=== PATIENT | female | born 1995 | race Caucasian/White ===

== ENCOUNTER 2016-12-26 10:31 | Emergency (ER) | payer OTHER ==
[2016-12-26] MEDS ORDERED: METOCLOPRAMIDE HCL ORAL SOLN 10 MG/10 ML UDCUP PO ONE (11:00)
[2016-12-26] MEDS ORDERED: LIDOCAINE 2% VISCOUS SOLN 20 ML UDCUP PO ONE (11:00)
[2016-12-26] MEDS ORDERED: MAG HYDROX/AL HYDROX/SIMETH SUSP 30 ML UDCUP PO ONE (11:00)
--- NOTE | 2016-12-26 11:03 | ER Document Report ---
ED Medical Screen (RME) - General Chief Complaint: Abdominal Pain Stated Complaint: ABD/BACK PAIN Time Seen by Provider: 12/26/16 10:53 Mode of Arrival: Ambulatory Information source: Patient, Relative, Outside Facility Records Notes: 21-year-old female history of gastric ulcer in the past presents with complaints of epigastric abdominal pain that radiates to her back and up her chest. Patient was seen at urgent care and sent in for evaluation H pylori urine urinalysis were negative I have greeted and performed a rapid initial assessment of this patient. A comprehensive ED assessment and evaluation of the patient, analysis of test results and completion of the medical decision making process will be conducted by additional ED providers. PHYSICAL EXAMINATION: GENERAL: Well-appearing, well-nourished and in mild distress from pain HEAD: Atraumatic, normocephalic. EYES: Pupils equal round extraocular movements intact, conjunctiva are normal. ENT: Nares patent NECK: Normal range of motion LUNGS: No respiratory distress Musculoskeletal: Normal range of motion NEUROLOGICAL: Normal speech, normal gait. PSYCH: Normal mood, normal affect. SKIN: Warm, Dry, normal turgor, no rashes or lesions noted. TRAVEL OUTSIDE OF THE [place] IN LAST 30 DAYS: No - Related Data Allergies/Adverse Reactions: No Known Allergies Allergy (Unverified 12/26/16 10:37) Home Medications: Current Home Medications No Home Medications 12/26/16 [History] Past Medical History - Social History Chew tobacco use (# tins/day): No Frequency of alcohol use: None Drug Abuse: None Renal/ Medical History: Denies: Hx Peritoneal Dialysis Surgical Hx: Negative - Immunizations Immunizations up to date: Yes Hx Diphtheria, Pertussis, Tetanus Vaccination: Yes Physical Exam - Vital signs Vitals: Temp Pulse BP Pulse Ox 99.0 F 86 129/91 H 100 12/26/16 10:39 12/26/16 10:39 12/26/16 10:39 12/26/16 10:39 Course - Vital Signs Vital signs: Temp Pulse Resp BP Pulse Ox 99.0 F 86 129/91 H 100 12/26/16 10:39 12/26/16 10:39 12/26/16 10:39 12/26/16 10:39
[2016-12-26 11:27] LABS: ABSOLUTE LYMPHOCYTES (AUTO) 1.6 10^3/uL (0.5-4.7); ABSOLUTE MONOCYTES (AUTO) 0.6 10^3/uL (0.1-1.4); ABSOLUTE NEUT (AUTO) 6.5 10^3/uL (1.7-8.2); BASOPHILS % (AUTO) 0.3 % (0-2); EOSINOPHILS % (AUTO) 0.4 % (0-6); HEMATOCRIT 41.1 % (36.0-47.0); HEMOGLOBIN 14.3 g/dL (12.0-15.5); HGB HCT DIFFERENCE 1.8; LYMPHOCYTES % (AUTO) 18.7 % (13-45); MEAN CORPUSCULAR HEMOGLOBIN 33.2 pg (27.0-33.4); MEAN CORPUSCULAR HGB CONC 34.7 g/dL (32.0-36.0); MEAN CORPUSCULAR VOLUME 95 fl (80-97); MONOCYTES % (AUTO) 6.6 % (3-13); RED BLOOD COUNT 4.31 10^6/uL (3.72-5.28); RED CELL DISTRIBUTION WIDTH 12.4 % (11.5-14.0); WHITE BLOOD COUNT 8.7 10^3/uL (4.0-10.5)
[2016-12-26 11:34] LABS: APPEARANCE,URINE CLEAR; BILIRUBIN,URINE NEGATIVE (NEGATIVE); GLUCOSE, URINE NEGATIVE (NEGATIVE); KETONES,URINE NEGATIVE (NEGATIVE); LEUKOCYTE ESTERASE,URINE NEGATIVE (NEGATIVE); NITRITE,URINE NEGATIVE (NEGATIVE); PROTEIN,URINE NEGATIVE (NEGATIVE); URINE SPECIFIC GRAVITY 1.005; UROBILINOGEN,URINE NEGATIVE mg/dL (<2.0)
[2016-12-26 11:48] LABS: ALANINE AMINOTRANSFERASE 28 U/L (9-52); ALBUMIN 4.8 g/dL (3.5-5.0); ALKALINE PHOSPHATASE 56 U/L (38-126); ANION GAP 13 (5-19); ASPARTATE AMINO TRANSFERASE 17 U/L (14-36); BILIRUBIN,DIRECT 0.3 mg/dL (0.0-0.4); BILIRUBIN,TOTAL 0.6 mg/dL (0.2-1.3); BLOOD UREA NITROGEN 10 mg/dL (7-20); CALCIUM 9.6 mg/dL (8.4-10.2); CARBON DIOXIDE 23 mmol/L (22-30); CHLORIDE 104 mmol/L (98-107); CREATININE RESULT 0.78 mg/dL (0.52-1.25); GLUCOSE 91 mg/dL (75-110); LIPASE 68.1 U/L (23-300); POTASSIUM 4.3 mmol/L (3.6-5.0); SODIUM 139.7 mmol/L (137-145); TOTAL PROTEIN 7.6 g/dL (6.3-8.2)
[2016-12-26] MEDS ORDERED: MORPHINE SULFATE 10 MG/ML INJ IM ONE (12:15)
[2016-12-26] MEDS ORDERED: MORPHINE SULFATE 10 MG/ML INJ IV ONE (12:17)
--- NOTE | 2016-12-26 12:17 | ER Document Report ---
ED General - General Chief Complaint: Abdominal Pain Stated Complaint: ABD/BACK PAIN Time Seen by Provider: 12/26/16 10:53 Mode of Arrival: Ambulatory Information source: Patient, Dr. Office Notes: 21-year-old female history of gastric ulcer presents with complaint of epigastric abdominal pain rating to her back. Patient notes symptoms started earlier today admits to burning sensation. Denies any fevers or chills denies any nausea vomiting admits to bad taste in her mouth as well as the pain radiating up her chest through her esophagus. TRAVEL OUTSIDE OF THE [place] IN LAST 30 DAYS: No - HPI Onset: Just prior to arrival Onset/Duration: Sudden Quality of pain: Burning Severity: Moderate Pain Level: 4 Associated symptoms: Other Exacerbated by: Denies Relieved by: Denies Similar symptoms previously: Yes Recently seen / treated by doctor: Yes - Related Data Allergies/Adverse Reactions: No Known Allergies Allergy (Unverified 12/26/16 10:37) Past Medical History - General Information source: Patient, Relative, Outside Facility Records - Social History Smoking Status: Never Smoker Cigarette use (# per day): No Chew tobacco use (# tins/day): No Smoking Education Provided: No Frequency of alcohol use: None Drug Abuse: None Family History: Reviewed & Not Pertinent Patient has suicidal ideation: No Patient has homicidal ideation: No Renal/ Medical History: Denies: Hx Peritoneal Dialysis Surgical Hx: Negative - Immunizations Immunizations up to date: Yes Hx Diphtheria, Pertussis, Tetanus Vaccination: Yes Review of Systems - Review of Systems Notes: REVIEW OF SYSTEMS: CONSTITUTIONAL : Denies fever, chills, or sweats. Denies recent illness. EENT: Denies eye, ear, throat, or mouth pain or symptoms. Denies nasal or sinus congestion or discharge. Denies throat, tongue, or mouth swelling or difficulty swallowing. CARDIOVASCULAR: Denies chest pain. Denies palpitations or racing or irregular heart beat. Denies ankle edema. RESPIRATORY: Denies cough, cold, or chest congestion. Denies shortness of breath, difficulty breathing, or wheezing. GASTROINTESTINAL: epigastric abd GENITOURINARY: Denies difficulty urinating, painful urination, burning, frequency, blood in urine, or discharge. FEMALE GENITOURINARY: Denies vaginal bleeding, heavy or abnormal periods, irregular periods. Denies vaginal discharge or odor. MUSCULOSKELETAL: Denies back or neck pain or stiffness. Denies joint pain or swelling. SKIN: Denies rash, lesions or sores. HEMATOLOGIC : Denies easy bruising or bleeding. LYMPHATIC: Denies swollen, enlarged glands. NEUROLOGICAL: Denies confusion or altered mental status. Denies passing out or loss of consciousness. Denies dizziness or lightheadedness. Denies headache. Denies weakness or paralysis or loss of use of either side. Denies problems with gait or speech. Denies sensory loss, numbness, or tingling. Denies seizures. PSYCHIATRIC: Denies anxiety or stress. Denies depression, suicidal ideation, or homicidal ideation. ALL OTHER SYSTEMS REVIEWED AND NEGATIVE. PHYSICAL EXAMINATION: GENERAL: Well-appearing, well-nourished and in mild distress HEAD: Atraumatic, normocephalic. EYES: Pupils equal round and reactive to light, extraocular movements intact, conjunctiva are normal. ENT: Nares patent, oropharynx clear without exudates. Moist mucous membranes. NECK: Normal range of motion, supple without lymphadenopathy LUNGS: Breath sounds clear to auscultation bilaterally and equal. No wheezes rales or rhonchi. HEART: Regular rate and rhythm without murmurs ABDOMEN: Soft, tender i nthe epigastric region Female : deferred Musculoskeletal: Normal range of motion, no pitting or edema. No cyanosis. NEUROLOGICAL: Cranial nerves grossly intact. Normal speech, normal gait. Normal sensory, motor exams PSYCH: Normal mood, normal affect. SKIN: Warm, Dry, normal turgor, no rashes or lesions noted. Dictation was performed using [employer] voice recognition software Physical Exam - Vital signs Vitals: Temp Pulse BP Pulse Ox 99.0 F 86 129/91 H 100 12/26/16 10:39 12/26/16 10:39 12/26/16 10:39 12/26/16 10:39 Course - Re-evaluation Re-evalutation: 12/26/16 15:06 Labwork notes no significant abnormality, CT was negative. I believe symptoms are secondary to ulceration patient will be given GI follow-up and is otherwise stable for discharge After performing a Medical Screening Examination, I estimate there is LOW risk for ACUTE APPENDICITIS, BOWEL OBSTRUCTION, ACUTE CHOLECYSTITIS, PERFORATED DIVERTICULITIS, INCARCERATED HERNIA, PANCREATITIS, PELVIC INFLAMMATORY DISEASE, PERFORATED ULCER, ECTOPIC , or TUBO-OVARIAN ABSCESS, thus I consider the discharge disposition reasonable. Also, there is no evidence or peritonitis , sepsis, or toxicity. I have reevaluated this patient multiple times and no significant life threatening changes are noted. The patient and I have discussed the diagnosis and risks, and we agree with discharging home with close follow-up with the understanding that symptoms and presentations can change. We also discussed returning to the Emergency Department immediately if new or worsening symptoms occur. We have discussed the symptoms which are most concerning (e.g., bloody stool, fever, changing or worsening pain, vomiting) that necessitate immediate return. - Vital Signs Vital signs: Temp Pulse Resp BP Pulse Ox 98.4 F 77 20 123/90 H 100 12/26/16 13:33 12/26/16 13:33 12/26/16 13:33 12/26/16 13:33 12/26/16 13:33 - Laboratory Result Diagrams: 12/26/16 11:05 12/26/16 11:05 Laboratory results interpreted by me: 12/26/16 11:05 Urine Blood SMALL H - Diagnostic Test Radiology reviewed: Image reviewed, Reports reviewed - no acute abnormality Discharge - Discharge Clinical Impression: GERD (gastroesophageal reflux disease) Qualifiers: Esophagitis presence: with esophagitis Qualified Code(s): K21.0 - Gastro- esophageal reflux disease with esophagitis Abdominal pain Qualifiers: Abdominal location: epigastric Qualified Code(s): R10.13 - Epigastric pain Condition: Stable Disposition: HOME, SELF-CARE Instructions: Abdominal Pain ([facility]) Prescriptions: Famotidine [Pepcid 20 mg Tablet] 20 mg PO DAILY #30 tablet Hydrocodone/Acetaminophen [[place] 5-325 mg Tablet] 1 tab PO Q6 #10 tablet Referrals: HUMBLE QUINTANILLA MD [ACTIVE STAFF] - Follow up tomorrow
--- NOTE | 2016-12-26 13:17 | RADIOLOGY REPORT (SQ) ---
EXAM DESCRIPTION: CT ABD/PELVIS WITH IV ONLY COMPLETED DATE/TIME: 12/26/2016 12:37 pm REASON FOR STUDY: epigastric abd pain COMPARISON: None. TECHNIQUE: CT scan of the abdomen and pelvis performed using helical scanning technique with dynamic intravenous contrast injection. No oral contrast. Images reviewed with lung, soft tissue, and bone windows. Reconstructed coronal and sagittal MPR imag es reviewed. Delayed images for evaluation of the urinary system also acquired. All images stored on PACS. All CT scanners at this facility use dose modulation, iterative reconstruction, and/or weight based d osing when appropriate to reduce radiation dose to as low as reasonably achievable (ALARA). [facility]: Dose Right [facility]: CareDose [facility]: Dose Right [facility]: Teradose 4D [facility]: [place] CONTRAST TYPE AND DOSE: contrast/concentration: Isovue 370.00 mg/ml; Total Contrast Delivered: 96.0 ml; Total Saline Delivered: 67.0 ml RENAL FUNCTION: Creatinine 0.78 RADIATION DOSE: Up-to-date CT equipment and radiation dose reduction techniques were employed. CTDIv ol: 9.3 - 12.3 mGy. DLP: 1197 mGy-cm.. LIMITATIONS: No oral contrast FINDINGS: LOWER CHEST: No significant findings. No nodules or infiltrates. LIVER: Normal size. No masses. No dilated ducts. SPLEEN: Normal size. No focal lesions. PANCREAS: No masses. No significant calcifications. No adjacent inflammation or peripancreatic fluid collections. Pancreatic duct not dilated. GALLBLADDER: No identified stones by CT criteria. No inflammatory changes to suggest cholecystitis. ADRENAL GLANDS: No significant masses or asymmetry. RIGHT KIDNEY AND URETER: No solid masses. No significant calcifications. No hydronephrosis or hyd roureter. LEFT KIDNEY AND URETER: No solid masses. No significant calcifications. No hydronephrosis or hydr oureter. AORTA AND VESSELS: No aneurysm. No dissection. Renal arteries, SMA, celiac without stenosis. RETROPERITONEUM: No retroperitoneal adenopathy, hemorrhage or masses. BOWEL AND PERITONEAL CAVITY: No masses or inflammatory changes. No free fluid or peritoneal masses. Moderate stool throughout the colon APPENDIX: Normal. PELVIS: No mass. No free fluid. Normal bladder. ABDOMINAL WALL: No masses. No hernias. BONES: No significant or acute findings. OTHER: No other significant finding. IMPRESSION: NO SIGNIFICANT OR ACUTE FINDING IN THE ABDOMEN OR PELVIS ON CT SCAN WITH IV CONTRAST. TECHNICAL DOCUMENTATION: JOB ID: [id number] Quality ID # [id number]: Final reports with documentation of one or more dose reduction techniques (e.g., Au tomated exposure control, adjustment of the mA and/or kV according to patient size, use of iterative reconstruction technique) 2010 [employer]- All Rights Reserved
[2016-12-26 13:37] VITALS: BP 123/90
== END 2016-12-26 13:37 | disposition home or self-care (01) ==
LOC: ER 10:31
DX: K21.0 Gastro-esophageal reflux disease with esophagitis (principal); R10.13 Epigastric pain; M54.9 Dorsalgia, unspecified
CPT/HCPCS: 99284; 36415; 83690; 85025; 81025; 80053; 81001; 74177; J3490

== ENCOUNTER 2017-01-23 18:11 | Inpatient (IN) | payer OTHER ==
[2017-01-23] MEDS ORDERED: NORMAL SALINE 1000 ML 1,000 ML IV PRN (18:49)
[2017-01-23] MEDS ORDERED: KETOROLAC TROMETHAMINE INJ/PF 30 MG/1 ML SDV IV ONE (18:50)
[2017-01-23 19:33] LABS: ABSOLUTE LYMPHOCYTES (AUTO) 1.7 10^3/uL (0.5-4.7); ABSOLUTE MONOCYTES (AUTO) 0.9 10^3/uL (0.1-1.4); ABSOLUTE NEUT (AUTO) 5.7 10^3/uL (1.7-8.2); BASOPHILS % (AUTO) 0.6 % (0-2); EOSINOPHILS % (AUTO) 0.5 % (0-6); HEMATOCRIT 43.4 % (36.0-47.0); HGB HCT DIFFERENCE 1.6; LYMPHOCYTES % (AUTO) 20.1 % (13-45); MEAN CORPUSCULAR HEMOGLOBIN 33.3 pg (27.0-33.4); MEAN CORPUSCULAR HGB CONC 34.7 g/dL (32.0-36.0); MEAN CORPUSCULAR VOLUME 96 fl (80-97); MONOCYTES % (AUTO) 10.3 % (3-13); RED BLOOD COUNT 4.52 10^6/uL (3.72-5.28); RED CELL DISTRIBUTION WIDTH 12.2 % (11.5-14.0); SEGMENTED NEUTROPHILS % (AUTO) 68.5 % (42-78); WHITE BLOOD COUNT 8.4 10^3/uL (4.0-10.5)
--- NOTE | 2017-01-23 19:34 | ER Document Report ---
ED Medical Screen (RME) - General Chief Complaint: Abdominal Pain Stated Complaint: ABDOMINAL PAIN, BACK PAIN Time Seen by Provider: 01/23/17 18:49 Notes: Patient states she was here 1 month ago for abdominal pain. She states a CT scan was done at that time and was unremarkable. She states she was told that she may have an ulcer. She was then referred to [facility]. She states [facility] did an upper endoscopy and this was negative for ulcer and showed no significant findings. Patient states she has a colonoscopy scheduled at [facility] the end of this month. She states her pain is now so severe she does not believe she can wait for the colonoscopy. TRAVEL OUTSIDE OF THE [place] IN LAST 30 DAYS: No - Related Data Allergies/Adverse Reactions: No Known Allergies Allergy (Verified 01/23/17 18:19) Past Medical History Renal/ Medical History: Denies: Hx Peritoneal Dialysis - Immunizations Immunizations up to date: Yes Hx Diphtheria, Pertussis, Tetanus Vaccination: Yes Physical Exam - Vital signs Vitals: Temp Pulse Resp BP Pulse Ox 98.5 F 95 18 141/85 H 99 01/23/17 18:17 01/23/17 18:17 01/23/17 18:17 01/23/17 18:17 01/23/17 18:17 Course - Vital Signs Vital signs: Temp Pulse Resp BP Pulse Ox 98.5 F 95 18 141/85 H 99 01/23/17 18:17 01/23/17 18:17 01/23/17 18:17 01/23/17 18:17 01/23/17 18:17 - Laboratory Result Diagrams: 01/23/17 18:25 01/23/17 18:25
[2017-01-23 19:46] LABS: APPEARANCE,URINE SLIGHTLY-CLOUDY; BILIRUBIN,URINE SMALL (NEGATIVE); GLUCOSE, URINE NEGATIVE (NEGATIVE); KETONES,URINE NEGATIVE (NEGATIVE); LEUKOCYTE ESTERASE,URINE NEGATIVE (NEGATIVE); NITRITE,URINE NEGATIVE (NEGATIVE); PROTEIN,URINE NEGATIVE (NEGATIVE); URINE SPECIFIC GRAVITY 1.019
--- NOTE | 2017-01-23 19:57 | ER Document Report ---
ED GI/ - General Chief Complaint: Abdominal Pain Stated Complaint: ABDOMINAL PAIN, BACK PAIN Time Seen by Provider: 01/23/17 18:49 Mode of Arrival: Ambulatory Information source: Patient Notes: Patient reports a one-month history of epigastric pain that radiates through to her back. Patient states tonight that the pain worsened and will occasionally radiate to her right shoulder. Patient denies any nausea, vomiting or diarrhea. Patient denies any urinary symptoms. Patient denies any fever. Patient states pain does worsen after eating. TRAVEL OUTSIDE OF THE [place] IN LAST 30 DAYS: No - HPI Patient complains to provider of: Abdominal pain. No: Flank pain, Vomiting Onset: Other - Off and on 1 month, worse over the past 2 days Timing/Duration: Worse Quality of pain: Sharp Pain Level: 4 Location: Epigastric, RUQ Vaginal bleeding (Compared to normal period): None Menstrual period history: denies: Associated symptoms: denies: Diarrhea, Dysuria, Fever, Loss of appetite, Nausea , Urinary hesitancy, Urinary frequency, Urinary retention, Urinary urgency, Vomiting Exacerbated by: Food Relieved by: Denies Similar symptoms previously: Yes Recently seen / treated by doctor: No - Related Data Allergies/Adverse Reactions: No Known Allergies Allergy (Verified 01/23/17 18:19) Past Medical History - General Information source: Patient - Social History Smoking Status: Never Smoker Frequency of alcohol use: None Drug Abuse: None Lives with: Family Family History: Reviewed & Not Pertinent - Medical History Medical History: Negative Renal/ Medical History: Denies: Hx Peritoneal Dialysis Surgical Hx: Negative - Immunizations Immunizations up to date: Yes Hx Diphtheria, Pertussis, Tetanus Vaccination: Yes Review of Systems - Review of Systems Constitutional: No symptoms reported. denies: Fever, Recent illness EENT: No symptoms reported Cardiovascular: No symptoms reported. denies: Chest pain Respiratory: No symptoms reported. denies: Cough, Short of breath Gastrointestinal: Abdominal pain. denies: Diarrhea, Nausea, Vomiting Genitourinary: No symptoms reported. denies: Dysuria, Flank pain Female Genitourinary: No symptoms reported Musculoskeletal: Back pain Skin: No symptoms reported Hematologic/Lymphatic: No symptoms reported Neurological/Psychological: No symptoms reported Physical Exam - Vital signs Vitals: Temp Pulse Resp BP Pulse Ox 98.5 F 95 18 141/85 H 99 01/23/17 18:17 01/23/17 18:17 01/23/17 18:17 01/23/17 18:17 01/23/17 18:17 - General General appearance: Appears well, Alert In distress: None - HEENT Head: Normocephalic, Atraumatic Eyes: Normal Nasal: Normal Mouth/Lips: Normal Mucous membranes: Normal Pharynx: Normal Neck: Normal, Supple. No: Lymphadenopathy - Respiratory Respiratory status: No respiratory distress Chest status: Nontender Breath sounds: Normal. No: Rales, Rhonchi, Stridor, Wheezing Chest palpation: Normal - Cardiovascular Rhythm: Regular Heart sounds: S1 appreciated, S2 appreciated Murmur: No - Abdominal Inspection: Normal Distension: No distension Bowel sounds: Normal Tenderness: Tender - Epigastric, right upper quadrant tenderness, Guarding Organomegaly: No organomegaly - Back Back: Normal, Tender - Tenderness to mid thoracic area. No: CVA tenderness - Extremities General upper extremity: Normal inspection, Normal ROM General lower extremity: Normal inspection, Normal ROM - Neurological Neuro grossly intact: Yes Cognition: Normal [place]mael Coma Scale Eye Opening: Spontaneous [place] Coma Scale Verbal: Oriented [place] Coma Scale Motor: Obeys Commands [place] Coma Scale Total: 15 - Psychological Associated symptoms: Normal affect, Normal mood - Skin Skin Temperature: Warm Skin Moisture: Dry Skin Color: Normal Course - Re-evaluation Re-evalutation: 01/23/17 21:02 Patient with symptoms concerning for cholecystitis, with possibility of choledocholithiasis. Consulted with Dr. Sky who agrees to come and evaluate patient. Advises starting patient on Zosyn IV. Confirmed with mica machine operator that Dr. Garvey is on- call for GI tomorrow. - Vital Signs Vital signs: Temp Pulse Resp BP Pulse Ox 98.4 F 71 16 118/74 98 01/23/17 23:41 01/23/17 23:41 01/23/17 23:41 01/23/17 23:41 01/23/17 23:41 - Laboratory Result Diagrams: 01/23/17 19:22 01/23/17 19:22 Laboratory results interpreted by me: 01/23/17 01/23/17 18:25 19:22 Calcium 10.3 H Total Bilirubin 4.9 H Direct Bilirubin 3.3 H AST 381 H ALT 782 H Alkaline Phosphatase 216 H Total Protein 8.3 H Albumin 5.1 H Urine Blood SMALL H Urine Bilirubin SMALL H Urine Urobilinogen 4.0 H Urine Ascorbic Acid 40 H 01/23/17 21:03 Labs- Entire Visit 01/23/17 01/23/17 01/23/17 18:25 19:22 19:22 WBC 8.4 RBC 4.52 Hgb 15.0 Hct 43.4 MCV 96 MCH 33.3 MCHC 34.7 RDW 12.2 Plt Count 295 Seg Neutrophils % 68.5 Lymphocytes % 20.1 Monocytes % 10.3 Eosinophils % 0.5 Basophils % 0.6 Absolute Neutrophils 5.7 Absolute Lymphocytes 1.7 Absolute Monocytes 0.9 Absolute Eosinophils 0.0 Absolute Basophils 0.0 Sodium 140.0 Potassium 3.9 Chloride 101 Carbon Dioxide 24 Anion Gap 15 BUN 13 Creatinine 0.74 Est GFR ( Amer) > 60 Est GFR (Non-Af Amer) > 60 Glucose 106 Calcium 10.3 H Total Bilirubin 4.9 H Direct Bilirubin 3.3 H Indirect Bilirubin Not Reportable Neonat Total Bilirubin Not Reportable AST 381 H ALT 782 H Alkaline Phosphatase 216 H Total Protein 8.3 H Albumin 5.1 H Lipase 81.7 Urine Color KATIE Urine Appearance SLIGHTLY-CLOUDY Urine pH 6.0 Ur Specific [place] 1.019 Urine Protein NEGATIVE Urine Glucose (UA) NEGATIVE Urine Ketones NEGATIVE Urine Blood SMALL H Urine Nitrite NEGATIVE Urine Bilirubin SMALL H Urine Urobilinogen 4.0 H Ur Leukocyte Esterase NEGATIVE Urine WBC (Auto) 2 Urine RBC (Auto) 11 Urine Bacteria (Auto) TRACE Squamous Epi Cells Auto 6 Urine Mucus (Auto) RARE Urine Ascorbic Acid 40 H Urine HCG, Qual NEGATIVE - Diagnostic Test Radiology reviewed: Reports reviewed Discharge - Discharge Clinical Impression: Abdominal pain Qualifiers: Abdominal location: epigastric Qualified Code(s): R10.13 - Epigastric pain Cholelithiasis Qualifiers: Cholelithiasis location: gallbladder Cholecystitis presence: with cholecystitis Cholecystitis acuity: acute Biliary obstruction: with biliary obstruction Qualified Code(s): K80.01 - Calculus of gallbladder with acute cholecystitis with obstruction Condition: Stable Disposition: ADMITTED INPATIENT Admitting Provider: Surgicalist
[2017-01-23 19:58] LABS: ALANINE AMINOTRANSFERASE 782 U/L (9-52); ALBUMIN 5.1 g/dL (3.5-5.0); ALKALINE PHOSPHATASE 216 U/L (38-126); ANION GAP 15 (5-19); ASPARTATE AMINO TRANSFERASE 381 U/L (14-36); BILIRUBIN,DIRECT 3.3 mg/dL (0.0-0.4); BILIRUBIN,TOTAL 4.9 mg/dL (0.2-1.3); BLOOD UREA NITROGEN 13 mg/dL (7-20); CALCIUM 10.3 mg/dL (8.4-10.2); CARBON DIOXIDE 24 mmol/L (22-30); CHLORIDE 101 mmol/L (98-107); CREATININE RESULT 0.74 mg/dL (0.52-1.25); GLUCOSE 106 mg/dL (75-110); LIPASE 81.7 U/L (23-300); POTASSIUM 3.9 mmol/L (3.6-5.0); TOTAL PROTEIN 8.3 g/dL (6.3-8.2)
--- NOTE | 2017-01-23 20:44 | RADIOLOGY REPORT (SQ) ---
EXAM DESCRIPTION: U/S ABDOMEN LIMITED W/O DOP COMPLETED DATE/TIME: 01/23/2017 8:34 pm REASON FOR STUDY: ruq pain COMPARISON: CT abdomen pelvis dated 12/26/2016 TECHNIQUE: Dynamic and static grayscale images acquired of the abdomen and recorded on PACS. Yakelin styles selected color Doppler and spectral images recorded. LIMITATIONS: None. FINDINGS: PANCREAS: No masses. Visualized pancreatic duct normal caliber. LIVER: No masses. Echotexture normal. LIVER VASCULATURE: Normal directional flow of the main portal vein and hepatic veins. GALLBLADDER: There is gallbladder sludge and stones. Possible septations. The gallbladder wall is t hickened measured 3.5 mm. ULTRASOUND-DETECTED ORTIZ'S SIGN: Positive. INTRAHEPATIC DUCTS AND COMMON DUCT: CBD and intrahepatic ducts normal caliber. No filling defects. INFERIOR VENA CAVA: Normal flow. AORTA: No aneurysm. RIGHT KIDNEY: Normal size. Normal echogenicity. No solid or suspicious masses. No hydronephrosis. No calcifications. PERITONEAL AND RIGHT PLEURAL SPACE: No ascites or effusions. OTHER: No other significant findings. IMPRESSION: Positive sonographic Ortiz's sign. There are gallstones, gallbladder sludge and possib le septations. Acute cholecystitis cannot be excluded. TECHNICAL DOCUMENTATION: JOB ID: [id number]- All Rights Reserved
[2017-01-23] MEDS ORDERED: PIPERACILLIN/TAZOBACTAM 3.375 GM VIAL IV ONE (20:59)
--- NOTE | 2017-01-23 22:41 | HISTORY AND PHYSICAL E ---
History and Physical NAME: KAMERON LUGO : 1995 AGE: 21Y ADMITTED: 01/23/2017 ROOM: ED14 CHIEF COMPLAINT: Abdominal pains. HISTORY OF PRESENT ILLNESS: This is a 21-year-old female who complained of epigastric pain around December 27 and went to the emergency room and diagnosed to have peptic ulcer disease. She had an upper endoscopy done by Dr. Esquivel on 01/12/17 which did not show any ulcer and, therefore, she stopped her medications. However, she continued to have mild to moderate epigastric pains radiating to the back and to the right upper quadrant. Usually if she rests or sleeps for a couple of hours, when she wakes up, the pain usually subsides. However, today complained of severe epigastric pains not relieved by resting or sleeping, associated with nausea. She felt cold the whole day. She denies any fever. Her urine is highly colored, according to the patient. She had an ultrasound of the gallbladder that showed gallstones with positive Holliday sign, a possibility of acute cholecystitis. Her labs showed LFTs were elevated with bilirubin total at 4.9, direct bilirubin at 3.3, AST 381, ALT 782, alkaline phosphatase of 216 and lipase was normal at 81.7. Her urine is clear except for positive bilirubin. Her white count, however, is normal at 8.4 with a hemoglobin of 15.0. PAST HISTORY: Unremarkable. SOCIAL HISTORY: Denies smoking. ALLERGIES: None known. PHYSICAL EXAMINATION: GENERAL: A well-developed, well-nourished, 21-year-old female, alert and oriented, complaining of epigastric pains. HEENT: Sclerae anicteric. Conjunctivae is pink. NECK: Supple, no adenopathy. LUNGS: Clear. HEART: Regular sinus rhythm. ABDOMEN: Soft with tenderness in the epigastric area and mild tenderness in the right upper quadrant. EXTREMITIES: No edema. No calf tenderness. IMPRESSION: 1. Cholelithiasis. 2. Cholecystitis. 3. Elevated liver function tests possibly due to common bile duct obstruction. PLAN: 1. Start patient on IV antibiotics. 2. Keep her n.p.o. 3. Hydrate. 4. Start IV antibiotics. 5. Monitor liver function tests. 6. GI consultation. 7. Possible ERCP. DICTATING PHYSICIAN: CEE MADERA M.D. [id number] PHY#: [id number] ID: [id number] JOB#: [id number] ACCT: [id number] cc: >
[2017-01-24] MEDS: NORMAL SALINE 1000 ML 1,000 ML IV PRN ×3 (00:33→20:02)
[2017-01-24 05:25] LABS: ABSOLUTE EOSINOPHILS # (AUTO) 0.1 10^3/uL (0.0-0.6); ABSOLUTE LYMPHOCYTES (AUTO) 2.6 10^3/uL (0.5-4.7); ABSOLUTE NEUT (AUTO) 3.8 10^3/uL (1.7-8.2); BASOPHILS % (AUTO) 0.4 % (0-2); HEMATOCRIT 38.5 % (36.0-47.0); HEMOGLOBIN 13.1 g/dL (12.0-15.5); HGB HCT DIFFERENCE 0.8; LYMPHOCYTES % (AUTO) 34.8 % (13-45); MEAN CORPUSCULAR HGB CONC 33.9 g/dL (32.0-36.0); MEAN CORPUSCULAR VOLUME 97 fl (80-97); MONOCYTES % (AUTO) 13.2 % (3-13); RED BLOOD COUNT 3.96 10^6/uL (3.72-5.28); RED CELL DISTRIBUTION WIDTH 12.2 % (11.5-14.0); SEGMENTED NEUTROPHILS % (AUTO) 50.6 % (42-78); WHITE BLOOD COUNT 7.4 10^3/uL (4.0-10.5)
[2017-01-24 05:45] LABS: ALANINE AMINOTRANSFERASE 585 U/L (9-52); ALBUMIN 3.8 g/dL (3.5-5.0); ALKALINE PHOSPHATASE 179 U/L (38-126); ANION GAP 12 (5-19); ASPARTATE AMINO TRANSFERASE 259 U/L (14-36); BILIRUBIN,DIRECT 3.4 mg/dL (0.0-0.4); BLOOD UREA NITROGEN 12 mg/dL (7-20); CALCIUM 9.3 mg/dL (8.4-10.2); CARBON DIOXIDE 21 mmol/L (22-30); CHLORIDE 108 mmol/L (98-107); CREATININE RESULT 0.78 mg/dL (0.52-1.25); GLUCOSE 82 mg/dL (75-110); LIPASE 84.1 U/L (23-300); POTASSIUM 4.2 mmol/L (3.6-5.0); SODIUM 140.5 mmol/L (137-145); TOTAL PROTEIN 6.5 g/dL (6.3-8.2)
[2017-01-24] MEDS ORDERED: GLYCOPYRROLATE INJ 0.4 MG/2 ML VIAL ONE (10:33)
[2017-01-24] MEDS ORDERED: SUCCINYLCHOLINE CHLORIDE INJ 200 MG/10 ML VIAL ONE (10:33)
[2017-01-24] MEDS: HYDROMORPHONE HCL INJ/PF 2 MG/ML AMPULE IV PRN (15:06)
[2017-01-24] MEDS ORDERED: ONDANSETRON HCL INJ/PF 4 MG/2 ML SDV ONE (18:05)
[2017-01-24] MEDS ORDERED: MIDAZOLAM 2 MG/2 ML INJ ONE (18:05)
[2017-01-24] MEDS ORDERED: DEXAMETHASONE SOD PHOSPHATE INJ 4 MG/1 ML VIAL ONE (18:05)
[2017-01-24] MEDS ORDERED: PROPOFOL INJ 200 MG/20 ML VIAL IV ONE (18:06)
[2017-01-24] MEDS ORDERED: HYDROMORPHONE HCL INJ/PF 2 MG/ML AMPULE ONE (18:06)
[2017-01-24] MEDS ORDERED: OXYCODONE-ACETAMINOPHEN 5-325 MG TABLET PO PRN ×2 (18:42)
[2017-01-24] MEDS ORDERED: FENTANYL CITRATE INJ/PF 100 MCG/2 ML AMPUL IV PRN ×3 (18:42)
[2017-01-24] MEDS ORDERED: MEPERIDINE HCL/PF INJ 25 MG/1 ML DISP.SYRIN IV PRN (18:42)
[2017-01-24] MEDS ORDERED: PROMETHAZINE HCL INJ 25 MG/1 ML VIAL IV PRN ×2 (18:42)
[2017-01-24] MEDS ORDERED: MORPHINE SULFATE 10 MG/ML INJ IV PRN (18:42)
[2017-01-24] MEDS ORDERED: DIPHENHYDRAMINE HCL 50 MG/ML VIAL IV PRN (18:42)
[2017-01-24] MEDS ORDERED: INDOMETHACIN 50 MG SUPP.RECT PR ONE (19:04)
--- NOTE | 2017-01-24 19:26 | PDOC CONSULTATION ---
Consultation Consult Date: 01/24/17 History of Present Illness Admission Date/PCP: 01/23/17 21:33 History of Present Illness: KAMERON LUGO is a 21 year old female who was admitted through the emergency room with abdominal pain, jaundice, and gallstones. I saw her in the office a few weeks ago when she presented with sudden onset epigastric pain. She had when gone to the emergency room on 12/26/2016 for this pain and her initial evaluation including LFTs, lipase, and CAT scan were all unremarkable. She had a normal EGD on 01/12/2017. She developed more pain last night and this was the most severe. On admission her bilirubin was 5 with ALT of 782, AST 381 and alkaline phosphatase of 216. Lipase was normal. Her ultrasound showed multiple gallstones with positive Holliday's sign. There was no dilated biliary ducts. Past Surgical History Past Surgical History: EGD 01/12/2017 Social History Lives with: Family Smoking Status: Never Smoker Frequency of Alcohol Use: None Hx Recreational Drug Use: No Drugs: None Hx Prescription Drug Abuse: No - Advance Directive Resuscitation Status: Full Code Family History Family History: Reviewed & Not Pertinent Parental Family History Reviewed: No Children Family History Reviewed: NA Sibling(s) Family History Reviewed.: NA Medication/Allergy Home Medications: No Home Medications 01/24/17 Allergies/Adverse Reactions: No Known Allergies Allergy (Verified 01/23/17 18:19) Review of Systems All systems: reviewed and no additional remarkable complaints except as stated Physical Exam Vital Signs: Temp Pulse Resp BP Pulse Ox 97.8 F 96 18 109/53 L 99 01/24/17 16:00 01/24/17 16:00 01/24/17 16:00 01/24/17 16:00 01/24/17 16:00 Intake & Output 01/23/17 01/24/17 01/25/17 06:59 06:59 06:59 Intake Total 1500 1126 Output Total 200 500 Balance 1300 626 Weight 87.9 kg Exam: General: Patient is alert and looks well. HEENT: There is no pallor or jaundice. PERRLA. Oropharynx normal Respiratory: No chest deformity. No respiratory distress. Chest wall palpitation was unremarkable. Breath sounds were normal Cardiovascular: Heart sounds 1 and 2 normal with no murmurs. Abdominal: Not distended. Soft with mild epigastric tenderness. Liver and spleen not palpable. No ascites demonstrated. Bowel sounds active. Rectal examination was deferred. Extremities: No edema Neurological: Alert and oriented x4. Grossly nonfocal. Normal speech Skin: No significant rash Psychological: Normal affect Results Laboratory Results: 01/24/17 04:48 01/24/17 04:48 01/24/17 01/24/17 04:48 04:48 WBC 7.4 RBC 3.96 Hgb 13.1 Hct 38.5 MCV 97 MCH 33.0 MCHC 33.9 RDW 12.2 Plt Count 242 Seg Neutrophils % 50.6 Lymphocytes % 34.8 Monocytes % 13.2 H Eosinophils % 1.0 Basophils % 0.4 Absolute Neutrophils 3.8 Absolute Lymphocytes 2.6 Absolute Monocytes 1.0 Absolute Eosinophils 0.1 Absolute Basophils 0.0 Sodium 140.5 Potassium 4.2 Chloride 108 H Carbon Dioxide 21 L Anion Gap 12 BUN 12 Creatinine 0.78 Est GFR ( Amer) > 60 Est GFR (Non-Af Amer) > 60 Glucose 82 Calcium 9.3 Total Bilirubin 5.0 H AST 259 H ALT 585 H Alkaline Phosphatase 179 H Total Protein 6.5 Albumin 3.8 Lipase 84.1 Impressions: Abdomen Ultrasound 01/23/17 18:49 IMPRESSION: Positive sonographic Holliday's sign. There are gallstones, gallbladder sludge and possible septations. Acute cholecystitis cannot be excluded. Assessment & Plan - Diagnosis (1) Jaundice Is this a current diagnosis for this admission?: Yes Plan: Her symptoms of abdominal pain, jaundice, and gallstones are consistent with choledocholithiasis. The need for an ERCP was explained to the patient and her parents. She will undergo an ERCP followed by cholecystectomy (2) Abnormal liver function Is this a current diagnosis for this admission?: Yes (3) Abdominal pain Qualifiers: Abdominal location: epigastric Qualified Code(s): R10.13 - Epigastric pain Is this a current diagnosis for this admission?: Yes (4) Cholelithiasis Qualifiers: Cholelithiasis location: gallbladder Cholecystitis presence: with cholecystitis Cholecystitis acuity: acute Biliary obstruction: with biliary obstruction Qualified Code(s): K80.01 - Calculus of gallbladder with acute cholecystitis with obstruction
--- NOTE | 2017-01-24 19:28 | Operative Report ---
Operative Report DATE OF SURGERY: 01/24/17 Operative Report: Pre-op diagnosis: Jaundice and gallstones Post-op diagnosis: Common bile duct stone and sludge Surgery: ERCP with sphincterotomy and balloon stone extraction Medications: As per anesthesia Tissue removed: None Procedure: After informed consent obtained from patient, the throat was sprayed with Hurricane and conscious sedation was achieved. The ERCP endoscope was then inserted into the esophagus blindly and advanced into the stomach. The duodenum was entered and the ampulla was identified. Using the triple-lumen sphincterotomy catheter the pancreatic duct was initially cannulated. It took multiple trials before the common bile duct was freely cannulated. A cholangiogram was obtained which showed a filling defect in the mid common bile duct. The common bile duct and intrahepatic ducts did not appear dilated. A good sized sphincterotomy was then performed using the endocut mode. The catheter was removed over the guidewire before a 9-12 mm balloon catheter was inserted. The balloon was inflated to 10 mm in the proximal common bile duct and pulled down the duct. An 8 mm yellow stone with large amount of sludge was extracted. The duct was swept one more time. A balloon occlusion cholangiogram was normal. Patient tolerated procedure well. Findings Common bile duct: Common bile duct stone and sludge Intrahepatic ducts: Normal Pancreatic duct: Normal Plan: We will administer indomethacin suppository. Proceed with cholecystectomy OPERATION: .
--- NOTE | 2017-01-24 19:46 | RADIOLOGY REPORT (SQ) ---
EXAM DESCRIPTION: ENDO CATH/BILIARY DUCT COMPLETED DATE/TIME: 01/24/2017 7:32 pm REASON FOR STUDY: ERCP COMPARISON: None. FLUOROSCOPY TIME: 4.6 minutes Spot images saved to PACS. TECHNIQUE: Intra-operative images acquired during surgical procedure to evaluate progress. NUMBER OF IMAGES: 7 LIMITATIONS: None. FINDINGS: Fluoroscopy was provided for intraoperative procedure. Please refer to the operative repo rt for further discussion. IMPRESSION: IMAGE(S) OBTAINED DURING PROCEDURE. COMMENT: Quality ID [id number]: Final reports for procedures using fluoroscopy that document radiation exp osure indices, or exposure time and number of fluorographic images (if radiation exposure indices are not available) Please consult full operative report of the attending physician for description of the procedure. TECHNICAL DOCUMENTATION: JOB ID: [id number]- All Rights Reserved
--- NOTE | 2017-01-24 19:47 | RADIOLOGY REPORT (SQ) ---
EXAM DESCRIPTION: NO CHG FLUORO COMPLETE DATE/TIME: 01/24/2017 7:32 pm REASON FOR STUDY: ERCP FINDINGS: Please see combined report for performance of procedure and radiologic supervision and int erpretation. IMPRESSION: Please see combined report for performance of procedure and radiologic supervision and i nterpretation.
[2017-01-24] MEDS ORDERED: DEXTROSE 40% GEL 15 GM TUBE PO PRN ×2 (20:49)
[2017-01-24] MEDS ORDERED: GLUCAGON,HUMAN RECOMB 1 MG INJ SUBCUT PRN (20:49)
[2017-01-24] MEDS ORDERED: DEXTROSE 50%-WATER 25 GM/50 ML DISP.SYRIN IV PRN ×2 (20:49)
--- NOTE | 2017-01-24 21:07 | PROGRESS NOTE E ---
Progress Note NAME: KAMERON LUGO : 1995 AGE: 21Y DATE: 01/24/2017 ROOM: 416 SUBJECTIVE: The patient just had a successful ERCP done by Dr. Esquivel. PLAN: We will keep her n.p.o. and schedule for a laparoscopic cholecystectomy by Dr. Conley tomorrow. DICTATING PHYSICIAN: CEE MADERA M.D. [id number] PHY#: [id number] ID: [id number] JOB#: [id number] ACCT: [id number] cc: >
[2017-01-25] MEDS: NORMAL SALINE 1000 ML 1,000 ML IV PRN ×2 (00:26→09:25)
[2017-01-25] MEDS ORDERED: GLYCOPYRROLATE INJ 0.4 MG/2 ML VIAL ONE (07:50)
[2017-01-25] MEDS ORDERED: METOCLOPRAMIDE HCL INJ/PF 10 MG/2 ML SDV ONE (07:50)
[2017-01-25] MEDS ORDERED: LIDOCAINE 2% INJ-PF (20 MG/ML) 10 ML AMPUL ONE (07:50)
[2017-01-25] MEDS ORDERED: NEOSTIGMINE METHYLSULFATE 10 MG/10 ML VIAL ONE (07:50)
[2017-01-25] MEDS ORDERED: ONDANSETRON HCL INJ/PF 4 MG/2 ML SDV ONE (07:50)
[2017-01-25] MEDS ORDERED: ROCURONIUM BROMIDE INJ 50 MG/5 ML VIAL IV ONE (07:50)
[2017-01-25] MEDS ORDERED: DEXAMETHASONE SOD PHOSPHATE INJ 4 MG/1 ML VIAL ONE (07:50)
[2017-01-25] MEDS ORDERED: SUCCINYLCHOLINE CHLORIDE INJ 200 MG/10 ML VIAL ONE (07:50)
--- NOTE | 2017-01-25 09:01 | PDOC PROGRESS REPORT ---
Subjective Progress Note for:: 01/25/17 Subjective:: Still having some right upper quadrant abdominal pain but decreased from yesterday. Physical Exam Vital Signs: Temp Pulse Resp BP Pulse Ox 98.1 F 66 18 96/54 L 99 01/25/17 07:29 01/25/17 07:29 01/25/17 07:29 01/25/17 07:29 01/25/17 07:29 Intake & Output 01/24/17 01/25/17 01/26/17 06:59 06:59 06:59 Intake Total 1500 3438 Output Total 200 500 Balance 1300 2938 Weight 87.9 kg General appearance: PRESENT: no acute distress, cooperative Respiratory exam: PRESENT: clear to auscultation tanika Cardiovascular exam: PRESENT: RRR GI/Abdominal exam: PRESENT: other - Soft, nondistended, mild right upper quadrant abdominal tenderness without peritoneal signs Extremities exam: PRESENT: other - No swelling Results Laboratory Results: 01/24/17 04:48 01/24/17 04:48 Impressions: Abdomen Ultrasound 01/23/17 18:49 IMPRESSION: Positive sonographic Holliday's sign. There are gallstones, gallbladder sludge and possible septations. Acute cholecystitis cannot be excluded. Catheter Placement 01/24/17 00:00 IMPRESSION: IMAGE(S) OBTAINED DURING PROCEDURE. Fluoroscopy 01/24/17 00:00 IMPRESSION: Please see combined report for performance of procedure and radiologic supervision and interpretation. Assessment & Plan - Diagnosis (1) Cholecystitis, acute with cholelithiasis Qualifiers: Biliary obstruction: with biliary obstruction Is this a current diagnosis for this admission?: Yes Plan: Patient with common bile duct stone status post ERCP with extraction. Patient looks good. Patient still has evidence of cholecystitis. Will proceed with laparoscopic cholecystectomy. I have discussed with the patient the risk and benefits of the procedure including risk of intestinal and bile duct injury, bleeding, infection, conversion to an open procedure, postcholecystectomy diarrhea. Patient understands and agrees to proceed
[2017-01-25] MEDS ORDERED: BUPIVACAINE HCL 0.25 % INJ/PF (2.5 MG/1 ML) 30 ML VIAL ONE (13:17)
[2017-01-25] MEDS ORDERED: MIDAZOLAM 2 MG/2 ML INJ ONE (13:21)
[2017-01-25] MEDS ORDERED: ACETAMINOPHEN 100 ML IV ONE (13:21)
[2017-01-25] MEDS ORDERED: FENTANYL CITRATE INJ/PF 250 MCG/5 ML AMPULE ONE (13:21)
[2017-01-25] MEDS ORDERED: PROPOFOL INJ 200 MG/20 ML VIAL IV ONE (13:21)
[2017-01-25] MEDS ORDERED: AMPICILLIN SOD/SULBACTAM 1.5 GM VIAL ONE (13:34)
[2017-01-25] MEDS ORDERED: FENTANYL CITRATE INJ/PF 100 MCG/2 ML AMPUL ONE ×2 (13:35→15:09)
[2017-01-25] MEDS ORDERED: ONDANSETRON HCL INJ/PF 4 MG/2 ML SDV IV PRN ×2 (14:53→15:47)
[2017-01-25] MEDS ORDERED: FENTANYL CITRATE INJ/PF 100 MCG/2 ML AMPUL IV PRN ×3 (14:53)
[2017-01-25] MEDS ORDERED: MEPERIDINE HCL/PF INJ 25 MG/1 ML DISP.SYRIN IV PRN (14:53)
[2017-01-25] MEDS ORDERED: DIPHENHYDRAMINE HCL 50 MG/ML VIAL IV PRN (14:53)
[2017-01-25] MEDS ORDERED: MORPHINE SULFATE 10 MG/ML INJ IV PRN (14:53)
[2017-01-25] MEDS ORDERED: PROMETHAZINE HCL INJ 25 MG/1 ML VIAL IV PRN ×2 (14:53)
[2017-01-25] MEDS ORDERED: MORPHINE SULFATE 10 MG/ML INJ ONE (14:55)
--- NOTE | 2017-01-25 15:47 | Operative Report ---
Operative Report DATE OF SURGERY: 01/25/17 PREOPERATIVE DIAGNOSIS: Cholelithiasis POSTOPERATIVE DIAGNOSIS: Acute and chronic cholecystitis, cholelithiasis OPERATION: Laparoscopic cholecystectomy. SURGEON: SEAN NOLEN ANESTHESIA: GA TISSUE REMOVED OR ALTERED: Gallbladder COMPLICATIONS: None ESTIMATED BLOOD LOSS: 50 cc INTRAOPERATIVE FINDINGS: Markedly inflamed thick-walled gallbladder. Gallstones. PROCEDURE: Informed consent was obtained. Patient was brought to the operating room placed operating table in supine position. After satisfactory induction of general anesthesia, patient's abdomen was prepped and draped in usual sterile fashion. A infraumbilical midline incision was made and dissection carried down to the fascia the peritoneal cavity entered without difficulty. Carlos trocar was inserted. Pneumoperitoneum produced good patient toleration. 5 mm trocar was placed in the subxiphoid location.Two 5 mm trochars were placed in the right subcostal location. The gallbladder appeared markedly inflamed and its wall was markedly thickened. The gallbladder was grasped and retracted cephalad over the dome of the liver. The infundibulum of the gallbladder was grasped retracted laterally and inferiorly thus exposing calot's triangle. Dissection was difficult due to the inflammation at Calot's triangle. However the cystic artery was clearly identified and it was clipped and divided. The cystic duct gallbladder junction was clearly identified but the cystic duct was markedly thickened and enlarged. A 12 mm trocar was placed replacing the 5 mm subxiphoid trocar. Using this trocar a vascular Endo YASHIRA was placed and the cystic duct was taken. The stump closure appeared secure. The gallbladder was taken off the gallbladder bed using the hook electrocautery technique. There was a posterior cystic artery which was clipped and divided. About two [address] up during the gallbladder dissection there was another vessel clearly going into the gallbladder which was clipped and divided. The plane between the gallbladder and the liver was indistinct making this portion of the dissection difficult as well. The gallbladder was removed intact and via an Endobag through the Carlos trocar site fascial defect. Hemostasis appeared excellent. Operative field was irrigated and irrigant aspirated out. Irrigation fluid was perfectly clear at the end of the case. All trochars were removed under the direct vision a laparoscope to ensure hemostasis. The 12 mm subxiphoid trocar site fascial defect was closed with interrupted Vicryl suture. The Carlos trocar site fascial defect was closed with interrupted Vicryl sutures. All skin incisions were closed with subcuticular interrupted Monocryl sutures. Marcaine was injected at the port sites. Patient tolerated procedure well no apparent complications and was taken to the recovery area in stable condition.
[2017-01-25] MEDS ORDERED: NORMAL SALINE 1000 ML 1,000 ML IV PRN (15:50)
[2017-01-25 16:01] LABS: HEMATOCRIT 36.2 % (36.0-47.0); HEMOGLOBIN 12.7 g/dL (12.0-15.5); HGB HCT DIFFERENCE 1.9; MEAN CORPUSCULAR HEMOGLOBIN 33.5 pg (27.0-33.4); MEAN CORPUSCULAR HGB CONC 35.2 g/dL (32.0-36.0); MEAN CORPUSCULAR VOLUME 95 fl (80-97); RED CELL DISTRIBUTION WIDTH 12.4 % (11.5-14.0); WHITE BLOOD COUNT 11.1 10^3/uL (4.0-10.5)
[2017-01-25] MEDS: FENTANYL CITRATE INJ/PF 100 MCG/2 ML AMPUL ONE ×2 (16:08→16:18)
[2017-01-25 16:17] LABS: ALANINE AMINOTRANSFERASE 468 U/L (9-52); ALBUMIN 3.7 g/dL (3.5-5.0); ALKALINE PHOSPHATASE 202 U/L (38-126); ASPARTATE AMINO TRANSFERASE 212 U/L (14-36); BILIRUBIN,TOTAL 6.8 mg/dL (0.2-1.3); TOTAL PROTEIN 6.4 g/dL (6.3-8.2)
[2017-01-25] MEDS: HYDROMORPHONE HCL INJ/PF 2 MG/ML AMPULE IV PRN ×2 (17:36→21:36)
--- NOTE | 2017-01-25 18:56 | PDOC PROGRESS REPORT ---
Subjective Progress Note for:: 01/25/17 Subjective:: Feels much better. Preoperative pain markedly improved. Physical Exam Vital Signs: Temp Pulse Resp BP Pulse Ox 97.5 F 77 18 111/64 96 01/25/17 18:19 01/25/17 18:19 01/25/17 18:19 01/25/17 18:19 01/25/17 18:19 Intake & Output 01/24/17 01/25/17 01/26/17 06:59 06:59 06:59 Intake Total 1500 3438 3000 Output Total 200 500 790 Balance 1300 2938 2210 Weight 87.9 kg General appearance: PRESENT: no acute distress, cooperative Respiratory exam: PRESENT: clear to auscultation tanika Cardiovascular exam: PRESENT: RRR GI/Abdominal exam: PRESENT: other - Soft, nondistended, mild upper abdominal tenderness without peritoneal signs. Results Laboratory Results: 01/25/17 15:53 01/24/17 04:48 01/25/17 01/25/17 15:53 15:53 WBC 11.1 H RBC 3.80 Hgb 12.7 Hct 36.2 MCV 95 MCH 33.5 H MCHC 35.2 RDW 12.4 Plt Count 217 Total Bilirubin 6.8 H AST 212 H ALT 468 H Alkaline Phosphatase 202 H Total Protein 6.4 Albumin 3.7 Impressions: Abdomen Ultrasound 01/23/17 18:49 IMPRESSION: Positive sonographic Holliday's sign. There are gallstones, gallbladder sludge and possible septations. Acute cholecystitis cannot be excluded. Catheter Placement 01/24/17 00:00 IMPRESSION: IMAGE(S) OBTAINED DURING PROCEDURE. Fluoroscopy 01/24/17 00:00 IMPRESSION: Please see combined report for performance of procedure and radiologic supervision and interpretation. Assessment & Plan - Diagnosis (1) Cholecystitis, acute with cholelithiasis Qualifiers: Biliary obstruction: with biliary obstruction Is this a current diagnosis for this admission?: Yes Plan: Status post laparoscopic cholecystectomy. Patient looks good. Hold off diet tonight in light of the marked inflammatory findings of the gallbladder.
[2017-01-26 06:21] LABS: ALANINE AMINOTRANSFERASE 440 U/L (9-52); ALBUMIN 3.7 g/dL (3.5-5.0); ALKALINE PHOSPHATASE 196 U/L (38-126); ANION GAP 11 (5-19); ASPARTATE AMINO TRANSFERASE 182 U/L (14-36); BILIRUBIN,DIRECT 1.7 mg/dL (0.0-0.4); BLOOD UREA NITROGEN 6 mg/dL (7-20); CALCIUM 9.3 mg/dL (8.4-10.2); CARBON DIOXIDE 22 mmol/L (22-30); CHLORIDE 104 mmol/L (98-107); CREATININE RESULT 0.68 mg/dL (0.52-1.25); GLUCOSE 68 mg/dL (75-110); POTASSIUM 3.9 mmol/L (3.6-5.0); SODIUM 136.9 mmol/L (137-145); TOTAL PROTEIN 6.3 g/dL (6.3-8.2)
[2017-01-26 06:33] LABS: BILIRUBIN,TOTAL 3.2 mg/dL (0.2-1.3)
[2017-01-26 13:50] VITALS: BP 112/65
== END 2017-01-26 15:05 | disposition home or self-care (01) | DRG 419 ==
LOC: ER 18:11 → UNDOADMIN 21:31 → EH 21:31 → UNDOADMIN 21:33 → 4W 23:22 → 4N 01-25 18:51
PROVIDERS: ADMIT Surgery; ATTEND Surgery
PROC: BF10YZZ Fluoroscopy of Bile Ducts using Other Contrast (ICD-10-PCS; 2017-01-24)
PROC: 0F798ZZ Dilation of Common Bile Duct, Via Natural or Artificial Opening Endoscopic (ICD-10-PCS; 2017-01-24 18:30)
PROC: 0FT44ZZ Resection of Gallbladder, Percutaneous Endoscopic Approach (ICD-10-PCS; principal; 2017-01-25 13:15)
DX: K80.13 Calculus of gallbladder with acute and chronic cholecystitis with obstruction (principal)
CPT/HCPCS: 36415; 43262; 43264; 740; 74328; 76705; 790; 80048; 80053; 80076; 81001; 81025; 83690; 85025; 85027; 88304; 96361; 96374; 99285; J0131; J0295; J0330; J1100; J1170; J1885; J2250; J2270; J2405; J2543; J2704; J2765; J3010; J3490; J7030

== ENCOUNTER 2017-08-28 10:43 | Day surgery (SDC) | payer OTHER ==
[~2017-08-28 10:43] MED LIST: CARBOXYMETHYLCELLULOSE SOD 0.5% 0.4 ML DROPERETTE ONE; CEFAZOLIN 2 GM/D5W RTU 2 GM/50 ML RTUPB IV PRN; DEXAMETHASONE SOD PHOS INJ 10 MG/1 ML VIAL ONE; DIPHENHYDRAMINE HCL 50 MG/ML VIAL ONE; FENTANYL CITRATE INJ/PF 100 MCG/2 ML AMPUL ONE; LIDOCAINE 2% INJ-PF (20 MG/ML) 10 ML AMPUL ONE; MIDAZOLAM 2 MG/2 ML INJ ONE; ONDANSETRON HCL INJ/PF 4 MG/2 ML SDV ONE; PROPOFOL INJ 200 MG/20 ML VIAL IV ONE; SUCCINYLCHOLINE CHLORIDE INJ 200 MG/10 ML VIAL ONE
[2017-08-28] MEDS ORDERED: OXYMETAZOLINE HCL 0.05% NASAL SPRAY 15 ML BOTTLE ONE (13:07)
[2017-08-28] MEDS ORDERED: BUPIVACAINE HCL 0.5%/EPI 1:200000 INJ 1.8 ML CARTRIDGE ONE ×2 (13:08→14:17)
[2017-08-28] MEDS ORDERED: OXYCODONE-ACETAMINOPHEN 5-325 MG TABLET ONE (15:24)
--- NOTE | 2017-08-28 21:49 | [facility] OPERATIVE REPORT E ---
[facility] Operative Report NAME: KAMERON LUGO AGE: 21Y DATE OF SURGERY: 08/28/2017 ROOM: PREOPERATIVE DIAGNOSIS: 1. CLOSED NASAL FRACTURES. 2. NASAL DEFORMITIES, ACQUIRED. 3. NASAL SEPTAL DEVIATION, ACQUIRED. POSTOPERATIVE DIAGNOSIS: 1. CLOSED NASAL FRACTURES. 2. NASAL DEFORMITIES, ACQUIRED. 3. NASAL SEPTAL DEVIATION, ACQUIRED. OPERATION: Closed reduction of nasal fractures with stabilization. SURGEON: BRANDON MORALES D.O. ANESTHESIA: General mask anesthesia. ANESTHESIA STAFF: Justino GORMAN. COMPLICATIONS: None. DRAINS: None. SPONGE COUNT: Verified. MATERIALS FORWARDED SPECIMEN: None. FINDINGS: 1. Left external nasal deviation with a depressed right bony nasal side wall component. 2. Nasal septal deviation. INDICATIONS: This is a 21-year-old white female patient who was referred to the [facility] from the [facility] due to the patient sustaining nasal trauma. The patient had been evaluated in the ER for nasal trauma status post a cheerleading accident whereby the patient was hit in the nose with another cheerleader's elbow. There was no loss of consciousness. A CT scan was performed with nasal fractures noted but no other bony facial injuries noted. There were also no findings concerning for a septal hematoma or seroma. After extensive discussion with the patient, she decided that she preferred to have the procedure performed in the main operating room setting versus trying to undergo the procedure in the clinic setting. The procedure consisting of a closed reduction of nasal fractures was discussed in detail with the patient. She voiced an understanding of the described surgical plan, agreed to proceed, and consent was obtained. PROCEDURE: The patient was taken to the main operating room and placed on operating room table in the supine position. Appropriate monitor placed. Using mask access, general mask anesthesia was induced. The patient underwent a nasal examination with injection of Marcaine with epinephrine to establish a nasal block. Once complete, nasal instrumentation was used to align the bony nasal deformities and bring them into the midline. Due to the depressed right nasal side wall fracture component, *------* Surgicel splinting was placed deep to the fracture segment. This packing was stabilized in place with [id number] Prolene suture through the septum. Surgicel was placed on the left side as well as a bolster to protect the septal mucosa. Once complete, the patient's nose and upper airway was suctioned with a soft suction catheter and the patient was then returned to the anesthesia staff. During the case, the airway was shared with the anesthesia staff without difficulty. The patient was then allowed to emerge from general mask anesthesia and was then transported to the Post Anesthesia Recovery Unit in stable condition. There were no complications. DICTATING PHYSICIAN: BRANDON MORALES D.O. [id number] PHY#: [id number] ID: [id number] JOB#: [id number] ACCT: [id number] cc:BRANDON MORALES D.O. >
== END 2017-08-28 16:14 | disposition home or self-care (01) ==
LOC: SC 10:43
PROVIDERS: ATTEND Otolaryngology
PROC: 0NSBXZZ Reposition Nasal Bone, External Approach (ICD-10-PCS; principal; 2017-08-28 12:00)
DX: S02.2XXA Fracture of nasal bones, initial encounter for closed fracture (principal); W50.0XXA Accidental hit or strike by another person, initial encounter; Y93.45 Activity, cheerleading; M95.0 Acquired deformity of nose; J34.3 Hypertrophy of nasal turbinates; J34.2 Deviated nasal septum; Z88.2 Allergy status to sulfonamides
CPT/HCPCS: 21320; J2250; J3490 ×3; J1200; J3010; J0330; J2405; J2704; J1100; J0690; 160